=== PATIENT | male | born 1940 | race Caucasian/White ===

== ENCOUNTER 2017-03-29 12:58 | Emergency (ER) | payer MEDICARE ==
[~2017-03-29] VITALS: Ht 157.5 cm; Wt 65.0 kg
[~2017-03-29 12:58] MED LIST: ALPR0.5T6 PO; CALC1TAB63 PO; FOLI-17 PO; [UNRECOGNIZED DRUG - CODE] PO
[2017-03-29 14:21] VITALS: BP 105/64
== END 2017-03-29 14:23 | disposition left against medical advice (07) ==
LOC: ED 14:10
DX: R53.1 Weakness (principal); Z53.21 Procedure and treatment not carried out due to patient leaving prior to being seen by health care provider

== ENCOUNTER → 2017-05-13 | Outpatient (CLI) | payer MEDICARE | END | disposition home or self-care (01) | LOC: CFH 09:14 | PROVIDERS: ATTEND Internal Medicine Cardiovascular Disease | DX: I08.2 Rheumatic disorders of both aortic and tricuspid valves (principal); I47.1 Supraventricular tachycardia; Z87.891 Personal history of nicotine dependence | CPT/HCPCS: 93306 ==

== ENCOUNTER → 2017-12-19 | Outpatient (CLI) | payer MEDICARE ==
[2017-12-19 12:56] LABS: ALBUMIN 4.2 g/dL (3.4-5.0); ANION GAP 6 mmol/L (5-15); CALCIUM 9.3 mg/dL (8.5-10.1); CHLORIDE 109 mmol/L (98-107)
[2017-12-19 12:57] LABS: HEMOGLOBIN A1C 5.3 % (4.2-6.3)
[2017-12-19 13:09] LABS: % IRON SATURATION 26 % (20-55); ALANINE AMINOTRANSFERASE 16 U/L (12-78); ALKALINE PHOSPHATASE 74 U/L (45-117); BILIRUBIN,TOTAL 0.8 mg/dL (0.2-1.0); IRON LEVEL 87 mcg/dL (65-175); THYROID STIMULATING HORMONE 0.411 mIU/L (0.358-3.740); TOTAL IRON BINDING CAPACITY 339 mcg/dL (250-450); TRANSFERRIN 272 mg/dL (200-360)
== END | disposition home or self-care (01) ==
LOC: CFH 11:14
PROVIDERS: ATTEND Nurse Practitioner Primary Care
DX: Z13.220 Encounter for screening for lipoid disorders (principal); Z12.11 Encounter for screening for malignant neoplasm of colon; Z12.5 Encounter for screening for malignant neoplasm of prostate; R53.83 Other fatigue; M25.511 Pain in right shoulder; G47.00 Insomnia, unspecified; N39.0 Urinary tract infection, site not specified; R42 Dizziness and giddiness; I83.813 Varicose veins of bilateral lower extremities with pain; R00.2 Palpitations; J30.9 Allergic rhinitis, unspecified; R23.8 Other skin changes; L65.9 Nonscarring hair loss, unspecified; Z78.9 Other specified health status; Z72.0 Tobacco use
CPT/HCPCS: 36415; 80053; 82607; 82728; 83036; 83540; 83550; 83735; 84207; 84425; 84443; 84466

== ENCOUNTER → 2017-12-30 | Outpatient (CLI) | payer MEDICARE | END | disposition home or self-care (01) | LOC: CFH 13:04 | PROVIDERS: ATTEND Nurse Practitioner Primary Care | DX: I65.23 Occlusion and stenosis of bilateral carotid arteries (principal); R53.83 Other fatigue; M25.511 Pain in right shoulder; N39.0 Urinary tract infection, site not specified; R00.2 Palpitations; I83.813 Varicose veins of bilateral lower extremities with pain; J30.9 Allergic rhinitis, unspecified; L65.9 Nonscarring hair loss, unspecified; R23.8 Other skin changes; G47.00 Insomnia, unspecified; Z72.0 Tobacco use; Z78.9 Other specified health status | CPT/HCPCS: 93880 ==

== ENCOUNTER 2018-09-05 19:14 | Emergency (ER) | payer SELFPAY ==
[~2018-09-05] VITALS: Ht 157.5 cm; Wt 57.9 kg
[2018-09-05] MEDS ORDERED: ASPI-496 PO (20:01)
[2018-09-05 20:05] LABS: BASOPHILS # (AUTO) 0.07 x10^3/uL (0-0.1); BASOPHILS % (AUTO) 1 % (0-1); EOSINOPHILS # (AUTO) 0.01 x10^3/uL (0-0.4); EOSINOPHILS % (AUTO) 0 % (1-7); LYMPHOCYTES # (AUTO) 1.27 x10^3/uL (1-3.4); LYMPHOCYTES % (AUTO) 11 % (22-44); MD NO; MEAN CORPUSCULAR HEMOGLOBIN 32.4 pg (27.5-34.5); MEAN CORPUSCULAR VOLUME 95.5 fL (81-97); MONOCYTES # (AUTO) 1.24 x10^3/uL (0.2-0.8); MONOCYTES % (AUTO) 11 % (2-9); NEUTROPHILS % (AUTO) 78 % (42-75); PLATELET COUNT 215 x10^3/uL (130-400); RED BLOOD COUNT 4.53 x10^6/uL (4.38-5.82); RED CELL DISTRIBUTION WIDTH 14.1 % (9.4-14.8)
[2018-09-05 20:13] LABS: ALBUMIN 3.9 g/dL (3.4-5.0); ANION GAP 9 mmol/L (5-15); CALCIUM 9.1 mg/dL (8.5-10.1); CHLORIDE 101 mmol/L (98-107); CREATININE 0.93 mg/dL (0.7-1.3)
[2018-09-05 20:16] LABS: CULTURE INDICATED? YES; MICROSCOPIC INDICATED
[2018-09-05 21:21] VITALS: BP 105/55
[2018-09-05] MEDS ORDERED: CEFDINIR 300 MG CAPSULE ONE (21:24)
[2018-09-05] MEDS ORDERED: CEFDINIR 300 MG CAPSULE PO SCH (21:30)
== END 2018-09-05 21:57 | disposition home or self-care (01) ==
LOC: ED 21:45
DX: K40.90 Unilateral inguinal hernia, without obstruction or gangrene, not specified as recurrent (principal); N39.0 Urinary tract infection, site not specified
CPT/HCPCS: 36415; 76857; 80048; 81001; 82040; 85025; 87086; 99285

== ENCOUNTER 2019-02-10 14:07 | Emergency (ER) | payer MEDICARE, MEDICAID ==
[~2019-02-10] VITALS: Ht 177.8 cm; Wt 57.6 kg
[~2019-02-10 14:07] MED LIST changes: +ASPI-496 PO
[2019-02-10 14:51] LABS: BASOPHILS # (AUTO) 0.04 x10^3/uL (0-0.1); BASOPHILS % (AUTO) 1 % (0-1); EOSINOPHILS # (AUTO) 0.16 x10^3/uL (0-0.4); EOSINOPHILS % (AUTO) 3 % (1-7); LYMPHOCYTES # (AUTO) 1.24 x10^3/uL (1-3.4); LYMPHOCYTES % (AUTO) 27 % (22-44); MD NO; MEAN CORPUSCULAR HEMOGLOBIN 32.1 pg (27.5-34.5); MEAN CORPUSCULAR HGB CONC 34.2 g/dL (33.2-36.2); MEAN CORPUSCULAR VOLUME 93.8 fL (81-97); MEAN PLATELET VOLUME 9.6 fL (7.4-10.4); MONOCYTES # (AUTO) 0.47 x10^3/uL (0.2-0.8); MONOCYTES % (AUTO) 10 % (2-9); NEUTROPHILS # (AUTO) 2.72 x10^3/uL (1.8-6.8); NEUTROPHILS % (AUTO) 59 % (42-75); PLATELET COUNT 165 x10^3/uL (130-400); RED CELL DISTRIBUTION WIDTH 14.7 % (9.4-14.8)
[2019-02-10 15:03] LABS: ALANINE AMINOTRANSFERASE 23 U/L (12-78); ALBUMIN 3.7 g/dL (3.4-5.0); ANION GAP 8 mmol/L (5-15); CALCIUM 8.7 mg/dL (8.5-10.1); CHLORIDE 110 mmol/L (98-107); CREATININE 0.71 mg/dL (0.7-1.3)
[2019-02-10 15:08] LABS: ALKALINE PHOSPHATASE 98 U/L (45-117); BILIRUBIN,TOTAL 0.2 mg/dL (0.2-1.0); TOTAL PROTEIN 6.3 g/dL (6.4-8.2); TROPONIN I < 0.015 ng/mL (0.000-0.045)
[2019-02-10] MEDS ORDERED: ALPR0.257 PO (15:36)
[2019-02-10] MEDS ORDERED: TAMS-11 PO (15:36)
--- NOTE | 2019-02-10 16:11 | NUR ---
pt in ct at this time.
[2019-02-10 16:15] VITALS: BP 99/65
[2019-02-10] MEDS ORDERED: OMNIPAQUE 350 MG/ML, 100ML BOTTLE ONE (16:27)
--- NOTE | 2019-02-10 16:41 | NUR ---
pt in room resting at this time. resps even and unlabored. cont o2, cardiac and nibp monitoring in place. call light in reach and pt expresses no wants or needs at this time.
[2019-02-10 17:00] LABS: MICROSCOPIC NOT IND
[2019-02-10 17:02] LABS: CULTURE INDICATED? NO
== END 2019-02-10 17:55 | disposition home or self-care (01) ==
LOC: ED 17:49
DX: J44.1 Chronic obstructive pulmonary disease with (acute) exacerbation (principal); Z87.891 Personal history of nicotine dependence
CPT/HCPCS: 36415; 71045; 71275; 80053; 81003; 83880; 84484; 85025; 93005; 99284; Q9967

== ENCOUNTER 2019-03-27 10:46 | Emergency (ER) | payer MEDICAID, MEDICARE ==
[~2019-03-27] VITALS: Ht 157.5 cm; Wt 54.9 kg
[~2019-03-27 10:46] MED LIST changes: +ALPR0.257 PO; +TAMS-11 PO
[2019-03-27] MEDS ORDERED: ALBUTEROL/IPRATROPIUM 2.5MG/0.5MG, 3 ML NPPB ONE (11:30)
[2019-03-27] MEDS ORDERED: ALBUTEROL/IPRATROPIUM 2.5MG/0.5MG, 3 ML ONE (11:37)
[2019-03-27 12:14] VITALS: BP 102/59
--- NOTE | 2019-03-27 12:55 | NUR ---
Patient/Caregiver given discharge instructions and they have confirmed that they understand the instructions. Patient ambulatory with steady gait.
== END 2019-03-27 12:56 | disposition home or self-care (01) ==
LOC: ED 11:39
DX: J02.9 Acute pharyngitis, unspecified (principal); J44.9 Chronic obstructive pulmonary disease, unspecified; F17.200 Nicotine dependence, unspecified, uncomplicated
CPT/HCPCS: 71046; 87081; 87880; 94640; 99284; J7620

== ENCOUNTER 2019-05-24 12:57 | Emergency (ER) | payer MEDICAID, MEDICARE ==
[~2019-05-24] VITALS: Ht 157.5 cm; Wt 54.7 kg
--- NOTE | 2019-05-24 13:15 | NUR ---
Assumed care of patient. C/O generalized weakness and wart to right hand. Patient states that [facility] and has no local family or PCP. Patient has been in [place] for 20 years. Call light within reach. Will continue to monitor.
[2019-05-24 13:30] LABS: BASOPHILS # (AUTO) 0.04 x10^3/uL (0-0.1); BASOPHILS % (AUTO) 1 % (0-1); EOSINOPHILS # (AUTO) 0.09 x10^3/uL (0-0.4); EOSINOPHILS % (AUTO) 2 % (1-7); LYMPHOCYTES # (AUTO) 1.32 x10^3/uL (1-3.4); LYMPHOCYTES % (AUTO) 30 % (22-44); MD NO; MEAN CORPUSCULAR HEMOGLOBIN 30.7 pg (27.5-34.5); MEAN CORPUSCULAR HGB CONC 32.8 g/dL (33.2-36.2); MEAN CORPUSCULAR VOLUME 93.7 fL (81-97); MEAN PLATELET VOLUME 8.9 fL (7.4-10.4); MONOCYTES # (AUTO) 0.54 x10^3/uL (0.2-0.8); MONOCYTES % (AUTO) 12 % (2-9); NEUTROPHILS # (AUTO) 2.38 x10^3/uL (1.8-6.8); NEUTROPHILS % (AUTO) 54 % (42-75); PLATELET COUNT 204 x10^3/uL (130-400); RED BLOOD COUNT 4.17 x10^6/uL (4.38-5.82); RED CELL DISTRIBUTION WIDTH 15.5 % (9.4-14.8)
[2019-05-24 13:41] LABS: ALBUMIN 3.6 g/dL (3.4-5.0); ANION GAP 7 mmol/L (5-15); CALCIUM 8.6 mg/dL (8.5-10.1); CHLORIDE 107 mmol/L (98-107)
--- NOTE | 2019-05-24 14:01 | NUR ---
Break RN: UA taken to lab, pt given warm blankets, no other needs at this time
[2019-05-24 14:09] LABS: ALANINE AMINOTRANSFERASE 20 U/L (12-78); ALKALINE PHOSPHATASE 89 U/L (45-117); BILIRUBIN,TOTAL 0.9 mg/dL (0.2-1.0); CREATININE 0.78 mg/dL (0.7-1.3); TOTAL PROTEIN 6.3 g/dL (6.4-8.2)
[2019-05-24 14:21] LABS: CULTURE INDICATED? YES; MICROSCOPIC INDICATED
--- NOTE | 2019-05-24 14:58 | NUR ---
Resting in [facility]. No needs.
[2019-05-24] MEDS ORDERED: CEFDINIR 300 MG CAPSULE ONE (15:39)
--- NOTE | 2019-05-24 15:45 | NUR ---
Patient medicated per eMAR. Meal try ordered. Plan is to DC after patient eats.
[2019-05-24] MEDS ORDERED: CEFDINIR 300 MG CAPSULE PO ONE (16:00)
--- NOTE | 2019-05-24 17:03 | NUR ---
Provided with meal tray.
[2019-05-24 17:34] VITALS: BP 106/64
--- NOTE | 2019-05-24 17:34 | NUR ---
Patient/Caregiver given discharge instructions and they have confirmed that they understand the instructions. Patient ambulatory with steady gait.
[2019-05-29] MEDS ORDERED: CEFD300C37 PO (19:03)
== END 2019-05-24 17:35 | disposition home or self-care (01) ==
LOC: ED 15:30
DX: B07.8 Other viral warts (principal); N39.0 Urinary tract infection, site not specified; R53.1 Weakness; J44.9 Chronic obstructive pulmonary disease, unspecified; F17.200 Nicotine dependence, unspecified, uncomplicated; Z59.0 Homelessness
CPT/HCPCS: 36415; 71045; 80053; 81001; 82607; 85025; 87086; 93005; 99284

== ENCOUNTER 2019-05-29 18:36 | Emergency (ER) | payer SELFPAY ==
[~2019-05-29] VITALS: Ht 157.5 cm; Wt 58.0 kg
[2019-05-29 19:55] VITALS: BP 94/55
== END 2019-05-29 21:05 | disposition home or self-care (01) ==
LOC: ED 19:06
DX: N40.1 Benign prostatic hyperplasia with lower urinary tract symptoms (principal); R33.8 Other retention of urine; R07.89 Other chest pain; R53.1 Weakness; J44.9 Chronic obstructive pulmonary disease, unspecified
CPT/HCPCS: 36415; 71045; 80053; 81001; 84443; 84484; 85025; 87086; 93005; 99284

== ENCOUNTER 2019-06-06 18:44 | Emergency (ER) | payer MEDICAID, MEDICARE ==
[~2019-06-06] VITALS: Ht 157.5 cm; Wt 55.6 kg
[2019-06-06 22:01] VITALS: BP 118/74
== END 2019-06-06 22:02 | disposition home or self-care (01) ==
LOC: ED 19:28
DX: L03.011 Cellulitis of right finger (principal); R32 Unspecified urinary incontinence; G89.28 Other chronic postprocedural pain; J44.9 Chronic obstructive pulmonary disease, unspecified
CPT/HCPCS: 36415; 80048; 81001; 85025; 87086; 99283

== ENCOUNTER 2019-09-06 18:57 | Emergency (ER) | payer MEDICARE, MEDICAID ==
[~2019-09-06] VITALS: Ht 157.5 cm; Wt 55.5 kg
[~2019-09-06 18:57] MED LIST changes: +CEFD300C37 PO
[2019-09-06] MEDS ORDERED: TAMSULOSIN 0.4 MG CAP.ER.24H ONE (19:56)
[2019-09-06] MEDS ORDERED: TAMSULOSIN 0.4 MG CAP.ER.24H PO ONE (20:00)
[2019-09-06 20:06] VITALS: BP 101/54
[2019-09-06 20:44] LABS: CULTURE INDICATED? YES; MICROSCOPIC INDICATED
== END 2019-09-06 20:25 | disposition home or self-care (01) ==
LOC: ED 19:20
DX: N40.0 Benign prostatic hyperplasia without lower urinary tract symptoms (principal); B86 Scabies; J44.9 Chronic obstructive pulmonary disease, unspecified; F17.210 Nicotine dependence, cigarettes, uncomplicated
CPT/HCPCS: 81001; 87086; 99283; Q0177

== ENCOUNTER 2020-01-12 13:35 | Emergency (ER) | payer MEDICARE, MEDICAID ==
[~2020-01-12] VITALS: Ht 157.5 cm; Wt 53.0 kg
[~2020-01-12 13:35] MED LIST changes: +ACET325T26 PO; +FISH OIL; +MULTIVITAMIN
--- NOTE | 2020-01-12 14:10 | NUR ---
THIS IS A 79 YO MALE COMING IN FOR "BODY ACHES AND SPASMS, I HAVE AN APPOINTMENT ARPIL 14TH AT THE [facility] FOR MY ELBOW". PATIENT IS POOR HISTORIAN, HARD TO DETERMINE REASON PATIENT WALKED TO THE ER TODAY. PATIENT STATES "I FRACTURED MY ELBOW A LITTLE BIT AGO AND DIDN'T WNAT SURGERY". PATIENT ABLE TO MOVE ALL EXTREMITIES WELL, STRENGTH EQUAL BILATERALLY, CSM IN TACT. RESPIRATIONS EVEN AND UNLABORED, DENIES SOB, LUNG SOUNDS CLEAR. ALL MONITORING IN PLACE, NSR ON MONITOR. CALL LIGHT IN REACH
[2020-01-12 14:28] LABS: ANION GAP 4 mmol/L (5-15); CHLORIDE 111 mmol/L (98-107); CREATININE 0.88 mg/dL (0.7-1.3)
[2020-01-12 14:29] LABS: ALANINE AMINOTRANSFERASE 22 U/L (12-78); ALBUMIN 3.5 g/dL (3.4-5.0)
[2020-01-12 14:31] LABS: ALKALINE PHOSPHATASE 105 U/L (45-117); BILIRUBIN,TOTAL 0.5 mg/dL (0.2-1.0); TOTAL PROTEIN 7.1 g/dL (6.4-8.2)
[2020-01-12 14:33] LABS: BASOPHILS # (AUTO) 0.03 x10^3/uL (0-0.1); BASOPHILS % (AUTO) 1 % (0-1); EOSINOPHILS # (AUTO) 0.16 x10^3/uL (0-0.4); EOSINOPHILS % (AUTO) 3 % (1-7); LYMPHOCYTES # (AUTO) 1.18 x10^3/uL (1-3.4); LYMPHOCYTES % (AUTO) 24 % (22-44); MD NO; MEAN CORPUSCULAR HEMOGLOBIN 31.2 pg (27.5-34.5); MEAN CORPUSCULAR HGB CONC 33.4 g/dL (33.2-36.2); MEAN CORPUSCULAR VOLUME 93.5 fL (81-97); MEAN PLATELET VOLUME 8.7 fL (7.4-10.4); MONOCYTES # (AUTO) 0.57 x10^3/uL (0.2-0.8); MONOCYTES % (AUTO) 12 % (2-9); NEUTROPHILS # (AUTO) 2.96 x10^3/uL (1.8-6.8); NEUTROPHILS % (AUTO) 61 % (42-75); PLATELET COUNT 264 x10^3/uL (130-400); RED BLOOD COUNT 4.19 x10^6/uL (4.38-5.82)
--- NOTE | 2020-01-12 15:10 | NUR ---
UA COLLECTED BY HORACE CHURCH
[2020-01-12 15:32] LABS: CULTURE INDICATED? YES; MICROSCOPIC INDICATED
--- NOTE | 2020-01-12 15:59 | NUR ---
PATIENT RESTING, RESPIRATIONS EVEN AND UNLABORED. VSS, NAD, WAITING FOR ERP TO RECHECK
[2020-01-12 16:08] VITALS: BP 108/70
--- NOTE | 2020-01-12 16:28 | NUR ---
Patient/Caregiver given discharge instructions and they have confirmed that they understand the instructions. Patient ambulatory with steady gait.
== END 2020-01-12 16:54 | disposition home or self-care (01) ==
LOC: ED 14:08
DX: R53.1 Weakness (principal); I95.9 Hypotension, unspecified; J44.9 Chronic obstructive pulmonary disease, unspecified; F17.200 Nicotine dependence, unspecified, uncomplicated
CPT/HCPCS: 36415; 71045; 80053; 81001; 83605; 84145; 85025; 87077; 87086; 93005; 99285

== ENCOUNTER 2020-01-23 09:43 | Emergency (ER) | payer MEDICARE, MEDICAID ==
[~2020-01-23] VITALS: Ht 157.5 cm; Wt 52.0 kg
[2020-01-23 09:49] VITALS: BP 102/62
--- NOTE | 2020-01-23 09:53 | NUR ---
PT JOSE MISTRYSA. CALLED 911 BECAUSE HIS RIGHT PINKY AND LEFT FOOT HURT. PT ALSO STATES HE HAS HAD A COUGH FOR OVER A YEAR. PT WAS ABLE TO WALK IN UNASSISTED.
== END 2020-01-23 11:32 | disposition home or self-care (01) ==
LOC: ED 09:53
DX: S92.515A Nondisplaced fracture of proximal phalanx of left lesser toe(s), initial encounter for closed fracture (principal); J44.1 Chronic obstructive pulmonary disease with (acute) exacerbation; B86 Scabies; B34.9 Viral infection, unspecified; F17.200 Nicotine dependence, unspecified, uncomplicated; X58.XXXA Exposure to other specified factors, initial encounter; Y93.89 Activity, other specified; Y92.89 Other specified places as the place of occurrence of the external cause; Y99.8 Other external cause status
CPT/HCPCS: 71045; 99284

== ENCOUNTER 2020-01-25 10:14 | Emergency (ER) | payer MEDICARE, MEDICAID ==
--- NOTE | 2020-01-25 10:31 | NUR ---
PT PULLED INTO TRIAGE, REQUESTING ASSISTANCE WITH WHERE TO FILL RX FOR PREMETHERIN. PT REFERRED TO MEDICATION ASSISTANCE PROGRAMS AND LOCAL PHARMACIES. RESOURCE SHEET PROVIDED. PT HAS NO MEDICAL COMPLAINS. PT LEFT WITHOUT BEING SEEN, AMBULATORY FROM TRIAGE TO EXIT WITH STEADY GAIT.
== END 2020-01-25 10:39 | disposition left against medical advice (07) ==
LOC: ED 10:30
DX: R68.89 Other general symptoms and signs (principal); Z53.21 Procedure and treatment not carried out due to patient leaving prior to being seen by health care provider

== ENCOUNTER 2020-01-28 10:43 | Emergency (ER) | payer MEDICARE, MEDICAID ==
[~2020-01-28] VITALS: Ht 157.5 cm; Wt 56.0 kg
[2020-01-28 10:46] VITALS: BP 110/58
--- NOTE | 2020-01-28 11:02 | NUR ---
PT PRESENTED TO ED D/T LEFT 2ND TOE SWELLING, REDNESS, AND PAIN. PT STATES HAD A GLF ON 12/02 AND BROKE LEFT ELBOW. PT STATES "I THINK THATS WHEN I BROKE MY TOE."
--- NOTE | 2020-01-28 11:27 | NUR ---
RN ORDERED PATIENT POSTOP SHOE PER ERMD ORDERS.
--- NOTE | 2020-01-28 11:30 | NUR ---
OKAY BY EDITH TO ORDER PATIENT A LUNCH TRAY.
--- NOTE | 2020-01-28 11:32 | NUR ---
RN CALLED SW TO OBTAIN INFORMATION IN REGARDS FOR PLACES FOR PATIENT TO GO SINCE PT STATES HE IS HOMELESS AND THE "[facility] IS CL[facility]." SW STATED [facility] IS NOT CLOSED BUT WILL LOOK INTO OPTIONS FOR PATIENT AND CALL RN BACK.
--- NOTE | 2020-01-28 11:49 | NUR ---
RN PROVIDED PT WITH FOOD.
--- NOTE | 2020-01-28 12:49 | NUR ---
PT DC BACK TO NURSING HOME BY TAXI. PT REFUSED TO PUT POSTOP SHOE ON. RN EXPLAINED DC INSTRUCTIONS WITH PT. PT EAGER TO LEAVE AND NO INTERST IN LISTENING.
--- NOTE | 2020-01-28 12:58 | NUR ---
PT ALSO REFUSED WALKER.
== END 2020-01-28 12:51 | disposition home or self-care (01) ==
LOC: ED 11:26
DX: S92.525A Nondisplaced fracture of middle phalanx of left lesser toe(s), initial encounter for closed fracture (principal); J44.9 Chronic obstructive pulmonary disease, unspecified; Z72.9 Problem related to lifestyle, unspecified; X58.XXXA Exposure to other specified factors, initial encounter; Y93.89 Activity, other specified; Y92.89 Other specified places as the place of occurrence of the external cause; Y99.8 Other external cause status
CPT/HCPCS: 99282

== ENCOUNTER 2020-02-02 10:55 | Emergency (ER) | payer MEDICARE, MEDICAID ==
[~2020-02-02] VITALS: Ht 157.5 cm; Wt 58.4 kg
--- NOTE | 2020-02-02 11:34 | NUR ---
Pt c/o one week of left ankle pain and swelling without trauma. Pt denies cough but has a weak cough for PA at bedside. Pt resting on gurney connected to SPO2 monitor. Xray at bedside. NADN. No needs expressed. Call light within reach. Bedrail up x 1
--- NOTE | 2020-02-02 12:08 | NUR ---
US at bedside at this time.
--- NOTE | 2020-02-02 13:00 | NUR ---
Pt requested urinal at bedside. Provided to pt. No other needs expressed at this time.
[2020-02-02 13:10] VITALS: BP 100/63
--- NOTE | 2020-02-02 13:42 | NUR ---
Patient given discharge instructions and they have confirmed that they understand the instructions. Patient ambulatory with steady gait. Pt left with d/c paperwork, Rx, taxi voucher, and all personal belongings. NADN. No other needs expressed.
== END 2020-02-02 13:44 | disposition home or self-care (01) ==
LOC: ED 11:22
DX: G89.29 Other chronic pain (principal); M79.662 Pain in left lower leg
CPT/HCPCS: 71045; 99284

== ENCOUNTER → 2020-04-13 | Emergency (ER) | payer MEDICARE, MEDICAID ==
[~2020-04-13] VITALS: Ht 157.5 cm; Wt 55.7 kg
[2020-04-13 12:26] VITALS: BP 93/61
--- NOTE | 2020-04-13 12:51 | NUR ---
EXECUTIVE SEARCH CONSULTANT: PT AMBULATORY TO ROOM FROM LOBBY
--- NOTE | 2020-04-13 13:01 | NUR ---
FIRST CONTACT WITH PT. PATIENT C/O R "SHOULDER JOINT INFECTION", R FIFTH "FINGER INFECTION", HIP PAIN WHEN SLEEPING AND BILAT RIB PAIN. PT IS HOMELESS. PT'S AOX4. RESPS EVEN AND UNLABORED.
--- NOTE | 2020-04-13 13:34 | NUR ---
SNACKS/JUICE PROVIDED AT THIS TIME. URINAL AT BEDSIDE.
--- NOTE | 2020-04-13 13:45 | NUR ---
EKG DONE AT BEDSIDE BY EMT AT THIS TIME.
--- NOTE | 2020-04-13 13:57 | NUR ---
PT PROVIDED URINE SAMPLE. UA SENT AT THIS TIME.
[2020-04-13 13:59] LABS: ALBUMIN 3.6 g/dL (3.4-5.0); ANION GAP 2 mmol/L (5-15); CALCIUM 8.9 mg/dL (8.5-10.1); CHLORIDE 109 mmol/L (98-107); CREATININE 0.81 mg/dL (0.7-1.3)
[2020-04-13 14:02] LABS: BASOPHILS # (AUTO) 0.03 x10^3/uL (0-0.1); BASOPHILS % (AUTO) 1 % (0-1); EOSINOPHILS # (AUTO) 0.13 x10^3/uL (0-0.4); EOSINOPHILS % (AUTO) 3 % (1-7); LYMPHOCYTES # (AUTO) 1.64 x10^3/uL (1-3.4); LYMPHOCYTES % (AUTO) 39 % (22-44); MD NO; MEAN CORPUSCULAR HEMOGLOBIN 30.5 pg (27.5-34.5); MEAN CORPUSCULAR HGB CONC 33.1 g/dL (33.2-36.2); MEAN CORPUSCULAR VOLUME 92.1 fL (81-97); MEAN PLATELET VOLUME 9.3 fL (7.4-10.4); MONOCYTES # (AUTO) 0.53 x10^3/uL (0.2-0.8); MONOCYTES % (AUTO) 13 % (2-9); NEUTROPHILS # (AUTO) 1.86 x10^3/uL (1.8-6.8); NEUTROPHILS % (AUTO) 45 % (42-75); PLATELET COUNT 195 x10^3/uL (130-400); RED BLOOD COUNT 4.12 x10^6/uL (4.38-5.82); RED CELL DISTRIBUTION WIDTH 14.3 % (9.4-14.8)
[2020-04-13 14:23] LABS: MICROSCOPIC INDICATED
--- NOTE | 2020-04-13 15:08 | NUR ---
pt resting in [facility]. resps even and unlabored.
--- NOTE | 2020-04-13 15:15 | NUR ---
sw at bedside at this time.
--- NOTE | 2020-04-13 16:33 | NUR ---
TASK RN: PT RESTING IN GURNEY W EYES CLOSED. EASILY ARROUSABLE TO VOICE. POC IS DC AND TAXI TO CUSTODIAL PER ERP/SW. PT UPDATED TO POC AND ASKED TO DRESS SELF. AWAITING DC INSTRUCTIONS.
--- NOTE | 2020-04-13 16:55 | NUR ---
Patient given discharge instructions and they have confirmed that they understand the instructions. Patient ambulatory with steady gait. TAXI VOUCHER GIVEN AT [place].
== END ==
LOC: ED 13:31
DX: G89.29 Other chronic pain (principal); M19.011 Primary osteoarthritis, right shoulder; M19.041 Primary osteoarthritis, right hand; M19.072 Primary osteoarthritis, left ankle and foot; R42 Dizziness and giddiness; R39.15 Urgency of urination; I44.4 Left anterior fascicular block; J44.9 Chronic obstructive pulmonary disease, unspecified; F17.200 Nicotine dependence, unspecified, uncomplicated; Z72.9 Problem related to lifestyle, unspecified
CPT/HCPCS: 36415; 80048; 81001; 82040; 85025; 87086; 93005; 99284